=== PATIENT | female | born 1965 | race Caucasian/White ===

== ENCOUNTER 2017-06-16 09:06 | Day surgery (SDC) | payer OTHER ==
[~2017-06-16] VITALS: Ht 160 cm; Wt 80.7 kg
[2017-06-16] VITALS (22 sets, daily range): BP systolic 118–155; BP diastolic 71–82; PULSE 54–68; RESP 12–22; Ht 160 cm; Wt 80.7 kg
[2017-06-16] MEDS ORDERED: MTF1000T PO (10:10)
[2017-06-16] MEDS ORDERED: ATOR10TA65 PO (10:10)
[2017-06-16] MEDS ORDERED: GLIP-95 PO (10:11)
[2017-06-16] MEDS ORDERED: ASPI81TA3 PO (10:11)
[2017-06-16 10:38] LABS: BASOPHIL # 0.1 10^3/ul (0.0-0.1); EOSINOPHILS # 0.1 10^3/ul (0.0-0.5); EOSINOPHILS % 2.1 % (0.0-7.0); HEMATOCRIT 39.9 % (37.0-47.0); HEMOGLOBIN 13.1 g/dl (12.0-16.0); LYMPHOCYTES # 1.7 10^3/ul (0.8-2.9); LYMPHOCYTES % 29.5 % (15.0-51.0); MEAN CORPUSCULAR HEMOGLOBIN 29.6 pg (29.0-33.0); MEAN CORPUSCULAR HGB CONC 32.8 g/dl (32.0-37.0); MEAN CORPUSCULAR VOLUME 90.1 fl (82.0-101.0); MEAN PLATELET VOLUME 10.6 fl (7.4-10.4); MONOCYTE # 0.5 10^3/ul (0.3-0.9); NEUTROPHIL # 3.4 10^3/ul (1.6-7.5); NEUTROPHILS % 58.9 % (39.0-77.0); PLATELET COUNT 298 10^3/UL (140-415); RED BLOOD COUNT 4.43 10^6/ul (4.20-5.40); WHITE BLOOD COUNT 5.7 10^3/ul (4.8-10.8)
[2017-06-16 10:41] LABS: INR 0.9; PROTIME 12.1 Sec (12.2-14.2); PT RATIO 0.9
[2017-06-16 10:49] LABS: CALCIUM 9.2 mg/dl (8.4-10.2); CREATININE 0.69 mg/dl (0.44-1.00); POTASSIUM 3.9 mmol/L (3.5-5.1)
[2017-06-16] MEDS ORDERED: HEPARIN 1000 UNITS/ML 10 ML INJ ONE (13:49)
[2017-06-16] MEDS ORDERED: IODIXANOL LOCM 100 ML BTL ONE (13:51)
[2017-06-16] MEDS ORDERED: LIDOCAINE 1% (MDV) 20 ML INJ ONE (13:51)
[2017-06-16] MEDS ORDERED: MIDAZOLAM 1 MG/ML 2 ML INJ ONE (13:51)
[2017-06-16] MEDS ORDERED: FENTAnyl 50 MCG/ML VIAL ONE (13:51)
[2017-06-16] MEDS ORDERED: VERAPAMIL 5 MG INJ ONE (13:51)
[2017-06-16] MEDS ORDERED: NITROGLYCERIN (IC) 100 MCG/ML INJ ONE (13:52)
[2017-06-16] MEDS ORDERED: SOD CHLORIDE 0.9% 1,000 ML IV SCH (14:20)
--- NOTE | 2017-06-16 14:23 | OPR ---
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 Left heart catheterization. 2. Transradial band applied to left wrist. PREINTERVENTION DIAGNOSIS: 1. Chest pain, positive stress test POSTINTERVENTION DIAGNOSES: 1. Non-obstructive coronary atherosclerosis SEDATION: Conscious sedation with fentanyl 50 mcg IV and Versed 1 mg IV. DESCRIPTION OF PROCEDURE: The patient placed on monitoring tech, pulse oximetry and supplemental oxygen as necessary. The right wrist was prepped and draped in a sterile fashion and infiltrated with 1% lidocaine. Via the Seldinger technique, the right radial artery was accessed. A 5-[place] sheath was inserted and through this the [place] catheter was advanced into the right coronary artery and left coronary artery. Placement confirmed by fluoroscopy and hemodynamics. CATHETERIZATION FINDINGS: 1. Left main: No significant disease. 2. LAD: Large caliber vessel with no significant disease. 3. Circumflex: Medium caliber vessel with no significant disease. 4. Obtuse marginal: Medium caliber vessel with no significant disease. 5. RCA: Large dominant vessel with 10-20% distal plaquing TOTAL CONTRAST: 25cc FLUOROSCOPY TIME: 2.3 minutes. COMPLICATIONS: None. FINAL RESULTS: Non-obstructive coronary atherosclerosis RECOMMENDATIONS: Medical management. Discharge home. DINESH ESCUDERO Jun 16, 2017 14:23
--- NOTE | 2017-06-22 13:29 | RADRPT ---
Vent Rate: 62 bpm RR Interval: 0 msec ND Interval: 182 msec QRS Duration: 92 msec QT Interval: 442 msec QTC Interval: 448 msec P-R-T [place]: 57 - 16 - 55 degrees Normal sinus rhythm Low voltage QRS Borderline ECG Electronically Signed By: Toni Ramirez [id number]
== END 2017-06-16 18:03 | disposition home or self-care (01) ==
LOC: SDS 09:06 → GIL 09:06
PROVIDERS: ATTEND Internal Medicine
DX: I25.10 Atherosclerotic heart disease of native coronary artery without angina pectoris (principal); E11.9 Type 2 diabetes mellitus without complications; E78.2 Mixed hyperlipidemia
CPT/HCPCS: 80048; 82962; 85025; 85610; 93005; 93454; 93458; C1769; C1887; J1644; J2250; J3010; Q9967; Z7610